=== PATIENT | male | born 1965 | race Caucasian/White ===

== ENCOUNTER 2024-08-19 09:47 | Outpatient (CLI) | payer OTHER, SELFPAY ==
[2024-08-19 10:00] LABS: Microscopic, Urine URINE MICROSCOPIC (MICROSCOPIC)
--- NOTE | 2024-08-19 10:08 | XR_ITS ---
FINAL REPORT CLINICAL HISTORY: ARTHRITIS c spine, t spine, l spine FINDINGS: CERVICAL SPINE AP, lateral and odontoid views of the cervical spine were obtained. There is no prior exam for comparison. There is no acute fracture or malalignment. Vertebral body height is preserved. Degenerative disease is most pronounced at C5-6. The precervical soft tissues are normal. IMPRESSION: Degenerative changes without acute osseous abnormality of the cervical spine THORACIC SPINE AP and lateral views of the thoracic spine were obtained. There is no prior exam for comparison. There is no acute fracture or malalignment. Vertebral body height is preserved. Disc spaces are relatively well-preserved. No acute paraspinal abnormality identified. IMPRESSION: No acute osseous abnormality of the thoracic spine LUMBOSACRAL SPINE AP and lateral views of the lumbosacral spine were obtained. There is no prior exam for comparison. There is no acute fracture or malalignment. Vertebral body height is preserved. Disc spaces are maintained. No acute paraspinal abnormality identified. IMPRESSION: No acute osseous abnormality the lumbosacral spine Reviewed, Interpreted and Dictated by Jaqueline Victor MD Transcribed by Antoinette Lewis Authenticated and [facility]
[2024-08-19 10:35] LABS: Albumin Level 4.4 g/dl (3.5-5.0); Chloride 106 mmol/L (98-107); Sodium 141 mmol/L (136-145)
[2024-08-19 10:36] LABS: Potassium 4.3 mmoL/L (3.5-5.1)
[2024-08-19 10:38] LABS: Alanine Aminotransferase 44 U/L (12-78); Albumin/Globulin Ratio 1.8 (1.1-1.8); Alkaline Phosphatase 94 U/L (38-126); Anion Gap 11.3 mEq/L (5-15); Aspartate Amino Transferase 38 U/L (17-59); Bilirubin,Total 0.4 mg/dl (0.2-1.3); Blood Urea Nitrogen 13 mg/dl (9-20); Carbon Dioxide 28 mmol/L (22.0-30.0); Estimated Glomerular Filt Rate 63 ml/min (>60); GFR (African American) 76 ML/MIN (>60); Globulin 2.5 g/dL (1.3-3.2); Total Protein,Serum 6.9 g/dl (6.3-8.2)
[2024-08-19 10:39] LABS: Calcium 9.5 mg/dl (8.4-10.2); Glucose 118 mg/dl (74-100)
[2024-08-19 10:58] LABS: Appearance,Urine CLEAR (Clear); Bilirubin,Urine Negative (Negative); Blood, Urine Negative (Negative); Color,Urine YELLOW (Yellow); Glucose,Urine (UA) Negative (Negative); Ketones,Urine Negative (Negative); Leukocyte Esterase,Urine Negative (Negative); Nitrate,Urine Negative (Negative); Protein,Urine Negative (Negative); Specific Gravity, Urine 1.015 (1.005-1.030); Urobilinogen,Urine 0.2 EU/dl (0.2)
[2024-08-19 11:33] LABS: Bacteria,Urine Trace /lpf; Squamous Epithelial Cell,Urine Occasional #/hpf (0-5)
== END 2024-08-19 23:59 | disposition home or self-care (01) ==
LOC: RAD 09:55
PROVIDERS: PCP Chiropractor; Visit Provider Chiropractor
DX: N17.9 Acute kidney failure, unspecified (principal); M13.80 Other specified arthritis, unspecified site
CPT/HCPCS: 36415; 72084; 80053; 81001